=== PATIENT | female | born 1945 | race Caucasian/White ===

== ENCOUNTER 2017-12-30 14:45 | Outpatient (CLI) | payer OTHER ==
--- NOTE | 2017-12-30 17:46 | XRAY Report ---
Reason: OSTEOARTHRITIS OF MINGO HANDS, EXTENSOR NODULE Procedure Date: 12/30/2017 Accession Number: [id number] / [id number] Procedure: XR - Finger(s) LT CPT Code: FULL RESULT: EXAM: LEFT FOURTH DIGIT RADIOGRAPHY BILATERAL HAND RADIOGRAPHY EXAM DATE: 12/30/2017 04:25 PM. CLINICAL HISTORY: OSTEOARTHRITIS OF MINGO HANDS, EXTENSOR NODULE. COMPARISON: None. TECHNIQUE: 3 views of the left fourth digit. 2 views of each bilateral hand. FINDINGS: Bones: No fractures or bone lesions. Bones appear osteopenic. Joints: In the left hand, there is moderate first CMC and triscaphe joint DJD along with moderate-severe DJD at the second, third, and fifth DIP joints, mild to moderate at the fourth DIP joint. In the right hand there is moderate first CMC and triscaphe joint DJD along with moderate-severe DJD at the second, third, and fifth DIP joints, moderate at the fourth DIP joint. Soft Tissues: Extensor nodule is not well-visualized. IMPRESSION: 1. No acute osseous abnormality. 2. Bilateral osteoarthritis. RADIA
--- NOTE | 2017-12-30 17:46 | XRAY Report ---
Reason: OSTEOARTHRITIS OF MINGO HANDS, EXTENSOR NODULE Procedure Date: 12/30/2017 Accession Number: [id number] / [id number] Procedure: XR - Hand 2 View BILAT CPT Code: FULL RESULT: EXAM: LEFT FOURTH DIGIT RADIOGRAPHY BILATERAL HAND RADIOGRAPHY EXAM DATE: 12/30/2017 04:25 PM. CLINICAL HISTORY: OSTEOARTHRITIS OF MINGO HANDS, EXTENSOR NODULE. COMPARISON: None. TECHNIQUE: 3 views of the left fourth digit. 2 views of each bilateral hand. FINDINGS: Bones: No fractures or bone lesions. Bones appear osteopenic. Joints: In the left hand, there is moderate first CMC and triscaphe joint DJD along with moderate-severe DJD at the second, third, and fifth DIP joints, mild to moderate at the fourth DIP joint. In the right hand there is moderate first CMC and triscaphe joint DJD along with moderate-severe DJD at the second, third, and fifth DIP joints, moderate at the fourth DIP joint. Soft Tissues: Extensor nodule is not well-visualized. IMPRESSION: 1. No acute osseous abnormality. 2. Bilateral osteoarthritis. RADIA
== END 2017-12-30 14:46 | disposition home or self-care (01) ==
LOC: DI 14:45
PROVIDERS: ATTEND Internal Medicine
DX: M19.042 Primary osteoarthritis, left hand (principal); M19.041 Primary osteoarthritis, right hand
CPT/HCPCS: 73140

== ENCOUNTER 2021-06-08 11:18 | Inpatient (IN) | payer MEDICARE, OTHER ==
[2021-06-08] MEDS ORDERED: SODIUM CHLORIDE 0.9% 1,000 ML IV STA (12:09)
--- NOTE | 2021-06-08 12:13 | XRAY Report ---
PROCEDURE: Chest 1 View X-Ray INDICATIONS: chest pain TECHNIQUE: One view of the chest was acquired. COMPARISON: None. FINDINGS: Surgical changes and devices: None. Lungs and pleura: Trace left pleural effusion is likely present with blunting of left costophrenic an gle. There is left basilar atelectasis. No focal infiltrate or gross pneumothorax. Mediastinum: Mediastinal contours appear normal. Heart size is normal. Bones and chest wall: No suspicious bony lesions. Overlying soft tissues appear unremarkable. IMPRESSION: Trace left pleural effusion and left basilar atelectasis. No definite focal infiltrate. No gross pneu mothorax. Reviewed by: Randy Gonzalez MD on 06/08/2021 12:12 PM PST Approved by: Randy Gonzalez MD on 06/08/2021 12:12 PM PST Station ID: [id number]
[2021-06-08 12:31] LABS: BASOPHILS # (AUTO) 0.1 10^3/uL (0.0-0.1); BASOPHILS % (AUTO) 0.8 %; EOSINOPHILS # (AUTO) 0.1 10^3/uL (0.0-0.7); EOSINOPHILS % (AUTO) 0.7 %; HCT - HEMATOCRIT 40.6 % (37.0-47.0); HGB - HEMOGLOBIN 13.7 g/dL (12.0-16.0); LYMPHOCYTES # (AUTO) 1.1 10^3/uL (1.5-3.5); LYMPHOCYTES % (AUTO) 12.5 %; MEAN CORPUSCULAR HEMOGLOBIN 29.7 pg (27.0-31.0); MEAN CORPUSCULAR HGB CONC 33.7 g/dL (32.0-36.0); MEAN CORPUSCULAR VOLUME 87.9 fL (81.0-99.0); MEAN PLATELET VOLUME 9.3 fL (7.9-10.8); MONOCYTES # (AUTO) 0.8 10^3/uL (0.0-1.0); MONOCYTES % (AUTO) 8.4 %; NEUTROPHILS % (AUTO) 77.4 %; PLT - PLATELET COUNT 229 10^3/uL (130-450); RED BLOOD COUNT 4.62 10^6/uL (4.20-5.40); RED CELL DISTRIBUTION WIDTH 13.4 % (12.0-15.0)
[2021-06-08 12:43] LABS: ALBUMIN 3.8 g/dL (3.2-5.5); ALBUMIN/GLOBULIN RATIO 1.1 (1.0-2.2); BILIRUBIN,TOTAL 0.6 mg/dL (0.2-1.0); CALCIUM 9.4 mg/dL (8.5-10.3); CREATININE 0.7 mg/dL (0.4-1.0); POTASSIUM 3.2 mmol/L (3.5-5.0); TOTAL PROTEIN 7.3 g/dL (6.7-8.2)
[2021-06-08 13:21] LABS: B. PARAPERTUSSIS- RESP PCR PAN NOT DETECTED; B. PERTUSSIS- RESP PCR PANEL NOT DETECTED; C. PNEUMONIAE- RESP PCR PANEL NOT DETECTED; CORONAVIRUS 229E-RESP PCR NOT DETECTED; CORONAVIRUS HKU1-RESP PCR NOT DETECTED; CORONAVIRUS NL63-RESP PCR NOT DETECTED; CORONAVIRUS OC43-RESP PCR NOT DETECTED; HUMAN METAPNEUMOVIRUS NOT DETECTED; INFLUENZA A- RESP PCR PANEL NOT DETECTED; INFLUENZA B - RESP PCR PANEL NOT DETECTED; M. PNEUMONIAE- RESP PCR PANEL NOT DETECTED; PARAINFLUENZA VIRUS 1 NOT DETECTED; PARAINFLUENZA VIRUS 2 NOT DETECTED; PARAINFLUENZA VIRUS 3 NOT DETECTED; PARAINFLUENZA VIRUS 4 NOT DETECTED; RHINOVIRUS/ENTEROVIRUS NOT DETECTED; RSV- RESP PCR PANEL NOT DETECTED; SARS-CoV-2 -RESP PCR PANEL NOT DETECTED
[2021-06-08] MEDS ORDERED: LEVALBUTEROL 1.25 MG/3 ML NEB INH STA (14:12)
[2021-06-08] MEDS ORDERED: IOVERSOL 320 100 ML VIAL IVP ONE (14:25)
--- NOTE | 2021-06-08 18:40 | ED Physician Documentation ---
PD HPI DYSPNEA - Stated complaint Stated Complaint: SOA - Chief complaint Chief Complaint: Resp - History obtained from History obtained from: Patient - Additional information Additional information: Pt comes to the ED with CC of dyspnea. She states it's been getting worse for the past couple of weeks, but has been present for several weeks. Pt states she has had a mild cough and thinks also, a low-grade fever. Pt denies any cardiac hx. No h/o DVT/PE. She has not had recent surgery or travels. PT states she had asthma as a kid, but has not really had issues with this much as an adult. She has used an albuterol inhaler on occasion, but does not like the way this makes her feel, so never refilled it. No edema of the legs. Pt has had cramps in her legs, but no specific, unilateral pain. Pt is not a smoker, and never has been. No other complaints at this time. No sick contacts. She is vaccinated for covid. Review of Systems Ten Systems: 10 systems reviewed and negative Constitutional: reports: Fever Eyes: reports: Reviewed and negative Ears: reports: Reviewed and negative Nose: reports: Reviewed and negative Throat: reports: Reviewed and negative Cardiac: reports: Reviewed and negative. 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 : None HEENT: None Psych: None Musculoskeletal: Osteoarthritis Derm: None - Past Surgical History Past Surgical History: Yes General: Appendectomy HEENT: Tonsil/Adenoidectomy - Present Medications Home Medications: Ambulatory Orders Medication Instructions Recorded Confirmed Lisinopril/Hydrochlorothiazide 1 tab ORAL DAILY 06/08/21 06/08/21 [Zestoretic 20-25 mg Tablet] - Allergies Allergies/Adverse Reactions: Allergies Allergy/AdvReac Type Severity Reaction Status Date / Time latex Allergy Hives Verified 06/08/21 11:23 Penicillins Allergy Hives Verified 06/08/21 11:23 - Social History Does the pt smoke?: No Smoking Status: Never smoker Does the pt drink ETOH?: Yes ETOH Use: Wine Does the pt have substance abuse?: No - Immunizations Immunizations are current?: Yes PD ED PE NORMAL - Vitals Vital signs reviewed: Yes - General General: Alert and oriented X 3, Well developed/nourished, Other (PT is in no distress, but appears slightly dyspneic.) - HEENT HEENT: Atraumatic, PERRL, EOMI, Moist mucous membranes - Neck Neck: Supple, no meningeal sign - Cardiac Cardiac: RRR, No murmur, Strong equal pulses - Respiratory Respiratory: No respiratory distress, Clear bilaterally - Abdomen Abdomen: Soft, Non tender, Non distended - Derm Derm: Normal color, Warm and dry, No rash - Extremities Extremities: No deformity, No edema, No calf tenderness / cord - Neuro Neuro: Alert and oriented X 3, Other (grossly intact) - Psych Psych: Normal mood, Normal affect Results - Vitals Vitals: Vital Signs - 24 hr 06/08/21 06/08/21 06/08/21 11:23 12:06 14:02 Temperature 37.1 C Heart Rate 102 H 93 98 Respiratory 20 25 H 18 Rate Blood Pressure 171/88 H 150/87 H 185/105 H O2 Saturation 98 91 L 96 06/08/21 06/08/21 06/08/21 14:15 15:07 15:57 Temperature 37 C Heart Rate 86 86 83 Respiratory 23 18 20 Rate Blood Pressure 158/103 H O2 Saturation 100 06/08/21 06/08/21 06/08/21 19:01 19:17 19:19 Temperature 37.6 C Heart Rate 92 100 Respiratory 20 21 Rate Blood Pressure 131/89 H 154/117 H O2 Saturation 92 86 L 94 Oxygen O2 Source Nasal cannula Oxygen Flow Rate 2 - EKG (time done) 1148 Rate: Rate (enter#) (100) Rhythm: Sinus tachycardia [place]: Normal Intervals: Normal CA QRS: Normal Ischemia: Normal ST segments, Non specific changes Compare to prior EKG: Old EKG unavailable - Labs Labs: Laboratory Tests 06/08/21 06/08/21 06/08/21 12:25 12:25 12:25 WBC 9.0 RBC 4.62 Hgb 13.7 Hct 40.6 MCV 87.9 MCH 29.7 MCHC 33.7 RDW 13.4 Plt Count 229 MPV 9.3 Neut # (Auto) 7.0 H Lymph # (Auto) 1.1 L Sequoyah # (Auto) 0.8 Eos # (Auto) 0.1 Baso # (Auto) 0.1 Absolute Nucleated RBC 0.00 Nucleated RBC % 0.0 Sodium 136 Potassium 3.2 L Chloride 101 Carbon Dioxide 24 Anion Gap 11.0 BUN 16 Creatinine 0.7 Estimated GFR (MDRD) 82 L Glucose 128 H Calcium 9.4 Total Bilirubin 0.6 AST 17 ALT 12 Alkaline Phosphatase 62 B-Natriuretic Peptide Total Protein 7.3 Albumin 3.8 Globulin 3.5 Albumin/Globulin Ratio 1.1 Lipase 28 Nasal Adenovirus (PCR) NOT DETECTED Nasal B. parapertussis DNA (PCR) NOT DETECTED Nasal Coronavir 229E PCR NOT DETECTED Nasal Coronavir HKU1 PCR NOT DETECTED Nasal Coronavir NL63 PCR NOT DETECTED Nasal Coronavir OC43 PCR NOT DETECTED Nasal Enterovir/Rhinovir PCR NOT DETECTED Nasal Influenza B PCR NOT DETECTED Nasal Influenza A PCR NOT DETECTED Nasal Parainfluen 1 PCR NOT DETECTED Nasal Parainfluen 2 PCR NOT DETECTED Nasal Parainfluen 3 PCR NOT DETECTED Nasal Parainfluen 4 PCR NOT DETECTED Nasal RSV (PCR) NOT DETECTED Nasal B.pertussis DNA PCR NOT DETECTED Nasal C.pneumoniae (PCR) NOT DETECTED Yasmani Human Metapneumo PCR NOT DETECTED Nasal M.pneumoniae (PCR) NOT DETECTED Nasal SARS-CoV-2 (PCR) NOT DETECTED 06/08/21 12:25 WBC RBC Hgb Hct MCV MCH MCHC RDW Plt Count MPV Neut # (Auto) Lymph # (Auto) Sequoyah # (Auto) Eos # (Auto) Baso # (Auto) Absolute Nucleated RBC Nucleated RBC % Sodium Potassium Chloride Carbon Dioxide Anion Gap BUN Creatinine Estimated GFR (MDRD) Glucose Calcium Total Bilirubin AST ALT Alkaline Phosphatase B-Natriuretic Peptide 209 H Total Protein Albumin Globulin Albumin/Globulin Ratio Lipase Nasal Adenovirus (PCR) Nasal B. parapertussis DNA (PCR) Nasal Coronavir 229E PCR Nasal Coronavir HKU1 PCR Nasal Coronavir NL63 PCR Nasal Coronavir OC43 PCR Nasal Enterovir/Rhinovir PCR Nasal Influenza B PCR Nasal Influenza A PCR Nasal Parainfluen 1 PCR Nasal Parainfluen 2 PCR Nasal Parainfluen 3 PCR Nasal Parainfluen 4 PCR Nasal RSV (PCR) Nasal B.pertussis DNA PCR Nasal C.pneumoniae (PCR) Yasmani Human Metapneumo PCR Nasal M.pneumoniae (PCR) Nasal SARS-CoV-2 (PCR) - Rads (name of study) CXR Radiology: Final report received, EMP read indepedently, See rad report (nad) CTA chest Radiology: Final report received, EMP read indepedently, See rad report (BL PEs in distal pulmonary arteries and distally. Concern for infarction) PD MEDICAL DECISION MAKING - ED course Complexity details: reviewed results, re-evaluated patient, considered differential, d/w patient ED course: The patient was visibly dyspneic, though mildly so, lying in the bed. Additionally, her O2 sat was in the low 90's with a good pleth, and I felt she should be worked up for this. She was placed on supplemental O2, with good response. CXR was unremarkable, and labs showed only a mild elevation of BNP at 200. The pt was still feeling short of breath, especially with movement, and although she had no identifiable risk factors for DVT/PE, and had not had sx of DVT, I felt she should be worked up with CTA of the chest. The pt was sent over, but as her CT was being started, the machine broke down, and the study could not be completed. I felt the level of concern warranted transfer to have the CTA done, and discussed this with the pt. She initially did not want incur extra expense to do this, but after our discussion, she agreed to the transfer. We arranged with [facility] to have pt get her CTA there, then return here. Pt was sent to [place], and before her return, I received a call from the radiologist, reporting that the pt had bilateral, proximal pulmonary emboli, with findings of pulmonary infarction, but not of R heart failure. At this point, change of shift had already occurred, and the pt was signed out to my oncoming colleague, with plan for re-evaluation on pt's return, and determination of final disposition. Departure - Departure Disposition: 66 [facility] DC/Xfer Clinical Impression: Pulmonary embolism and infarction, Hypoxia Condition: Stable Discharge Date/Time: 06/08/21 22:07
[2021-06-08] MEDS ORDERED: APIXABAN 5 MG TABLET PO STA ×2 (18:41→19:48)
--- NOTE | 2021-06-08 19:35 | ED Physician Documentation ---
ED Addendum - Addendum Addendum: 06/08/21 19:34 Patient was signed out to me by Dr. López. 75-year-old female found to have bilateral pulmonary emboli on CT angio of the chest. We attempted to ambulate the patient in the emergency department and she immediately desaturated down to the mid to low 80s. We will start the patient on anticoagulants and admit for further care. Discussed the case with Dr. Olson, hospitalist to accepts This document was made in part using voice recognition software. While efforts a re made to proofread this document, sound alike and grammatical errors may occur Departure - Departure Disposition: 66 [facility] DC/Xfer Clinical Impression: Pulmonary embolism and infarction, Hypoxia Condition: Stable
[2021-06-08] MEDS ORDERED: SODIUM CHLORIDE FLUSH 0.9% 10 ML SYRINGE IVP PRN (19:59)
[2021-06-08] MEDS ORDERED: ONDANSETRON ODT 4 MG TABLET TL PRN (19:59)
--- NOTE | 2021-06-08 20:05 | HISTORY & PHYSICAL EXAMINATION ---
Chief Complaint - Chief Complaint Chief Complaint: Shortness of breath History of Present Illness - Admitted From Admitted From:: Home - History Obtained From Records Reviewed: Yes History obtained from: Patient, ER Physician, EMR - History of Present Illness HPI Comment/Other: This is a 75-year-old female with a past medical history significant for hypertension who presents today complaining of shortness of breath over the past 3 to 4 weeks. She states her her symptoms began about a month ago and have progressed over the past 10 days. She is usually quite active and able to exercise on a regular basis but lately she has been short of breath with minimal activity such as making her bed in the morning. She reports occasional chest tightness that is worse with her nonproductive cough. She has occasional leg swelling which is chronic for her but this is not worse lately. She does feel dizzy and lightheaded with her dyspnea but she denies any syncope. She reports no fevers but does have occasional chills. She denies a personal history of DVT or thrombus. She states her father had a history of thrombosis but he was solid waste truck driver. She reports no recent surgical intervention or trauma. She has not been on a flight recently. She did take a car ride down to [place] to visit her sister about 2 to 3 months ago. This is about [address] but she does take breaks in between. She underwent a CT angiogram which showed bilateral pulmonary embolism with likely infarction. Initial plan was to send her home and so she was given Eliquis in the emergency department but it was noted that she was hypoxic with activity down to the mid 80s and therefore medicine was consulted for admission. I discussed goals of care with her and she would like to be a DNR. 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 He also had coronary artery disease and underwent CABG. Living arrangement: At home Living Situation: With spouse/s.o. Social History Notes: She lives at home with her significant other. She is a non-smoker. She will occasionally have a glass of wine. Meds/Allgy - Home Medications Home Medications: Ambulatory Orders Medication Instructions Recorded Confirmed Lisinopril/Hydrochlorothiazide 1 tab ORAL DAILY 06/08/21 06/08/21 [Zestoretic 20-25 mg Tablet] - Allergies Allergies/Adverse Reactions: Allergies Allergy/AdvReac Type Severity Reaction Status Date / Time latex Allergy Hives Verified 06/08/21 11:23 Penicillins Allergy Hives Verified 06/08/21 11:23 Review of Systems - Constitutional Constitutional: reports: Chills. denies: Fatigue, Fever - Ears, Nose & Throat Ears, Nose & Throat: denies: Nasal discharge, Nasal congestion, Sore throat - Cardiovascular Cariovascular: reports: Chest pain, Lightheadedness, Exertional dyspnea, Decr. exercise tolerance. denies: Edema, Syncope - Respiratory Respiratory: reports: Cough, SOB with exertion, Pleuritic pain. denies: Sputum production, SOB at rest - Gastrointestinal Gastrointestinal: denies: Abdominal pain, Nausea, Vomiting - Genitourinary Genitourinary: denies: Dysuria, Frequency, Urgency, Hematuria - Musculoskeletal Musculoskeletal: denies: Muscle pain, Back pain - Integumentary Integumentary: denies: Rash - Neurological Neurological: reports: Dizziness. denies: General weakness, Focal weakness - Hematologic/Lymphatic Hematologic/Lymphatic: denies: Anemia, Blood clots, Bleeding tendencies - All Other Systems All Other Systems: reports: Reviewed and negative Prior Level of Functionality: She is independent with her ADL's. Exam - Vital Signs Reviewed Vital Signs: Yes Vital Signs: Vital Signs x48h Temp Pulse Resp BP Pulse Ox 06/08/21 19:19 100 21 154/117 H 94 06/08/21 19:17 86 L 06/08/21 19:01 37.6 C 92 20 131/89 H 92 06/08/21 15:57 83 20 06/08/21 15:07 37 C 86 18 158/103 H 100 06/08/21 14:15 86 23 06/08/21 14:02 98 18 185/105 H 96 06/08/21 12:06 93 25 H 150/87 H 91 L - Physical Exam General Appearance: positive: No acute distress, Alert Eyes Bilateral: positive: Normal inspection, Conjunctivae nml ENT: positive: Other (Nasal cannula in place.) Neck: positive: Nml inspection Respiratory: positive: No respiratory distress. negative: Wheezes, Rales Cardiovascular: positive: Regular rate & rhythm, Tachycardia. negative: Irregularly irregular, Systolic murmur Abdomen: positive: Non-tender, No distention. negative: Tenderness Skin: positive: Warm, Dry Extremities: positive: No pedal edema, Calf tenderness (Right sided calf tenderness.) Neurologic/Psychiatric: positive: Motor nml. negative: Disoriented to person, Disoriented to place, Disoriented to time Conclusion/Plan - Problem List (1) Pulmonary embolism and infarction Conclusion/Plan: She presents with dyspnea and found to have bilateral pulmonary embolism on CT angiogram with likely infarction. This may potentially be provoked given the car ride she had about 2 months ago. Although she is not hypoxic at rest, she does desaturate with activity down to the mid 80s. She was initially tachycardic in the 100s but this has improved to the 80s. Her BNP is only mildly elevated at 200. She received Eliquis in the emergency department as the plan was to initially discharge her home given lack of hypoxia and tachycardia. Given she will be admitted now due to the hypoxic activity, we will continue her on anticoagulation with Lovenox 80 mg twice daily. We will check a troponin. I have ordered an echocardiogram for tomorrow morning. We will also order a duplex. She will need hypercoagulable work-up on an outpatient basis given her family history of thrombosis. (2) Hypertension Conclusion/Plan: She is hypertensive with systolics in the 150s. We will resume her home hydrochlorothiazide/lisinopril. (3) Hypokalemia Conclusion/Plan: Her potassium is decreased at 3.2 and this is likely due to the hydrochlorothiazide. We will replace this orally and recheck in the morning. - Lab Results Lab results reviewed: Yes Fish Bones: 06/08/21 12:25 06/08/21 12:25 - Diagnostic Imaging Results Diagnostic Imaging Results: positive: Final report reviewed - EKG Results EKG Interpreted Independently: Yes EKG Findings: EKG shows sinus tachycardia with nonspecific ST segment changes. Core Measures - Anticipated LOS I expect patient to be DC'd or transferred within 96 hours.: Yes - Issues Hospital Issues and Management Plan: 75-year-old female presents with dyspnea found to have bilateral pulmonary embolism and is hypoxic with activity. She will be admitted for anticoagulation and further work-up. - DVT/VTE - Prophylaxis VTE/DVT Device ordered at admit?: No Not Ordered - Medical Reason: Contraindicated VTE/DVT Prophylaxis med ordered at admit?: Yes
[2021-06-08] MEDS ORDERED: POTASSIUM CHLORIDE 20 MEQ TABLET PO STA (20:48)
[2021-06-08 20:59] LABS: INR 1.4 (0.8-1.2); PT - PROTHROMBIN TIME 15.6 secs (9.9-12.6)
--- NOTE | 2021-06-08 21:52 | Ultrasound Report ---
PROCEDURE: Duplex Ext Veins Bilateral INDICATIONS: Right leg edema TECHNIQUE: Real-time imaging, as well as color and pulse Doppler interrogation, were performed of the deep veins of both legs from the inguinal ligament to the popliteal fossa. COMPARISON: None FINDINGS: The mid to distal SFV demonstrate thrombus and are noncompressible. The right common femora l vein and proximal superficial femoral vein demonstrate normal compressibility and flow. The left lower extremity demonstrates normal compressibility and flow with no evidence of deep venous thrombosis. IMPRESSION: 1. Deep venous thrombosis in the right leg. 2. No DVT in the left leg. Preliminary report was given to Dr. Olson by the earth moving technician. Reviewed by: Mynor Estevez on 06/08/2021 9:50 PM PST Approved by: Mynor Estevez on 06/08/2021 9:50 PM PST Station ID: [id number]
[2021-06-09] MEDS: SODIUM CHLORIDE FLUSH 0.9% 10 ML SYRINGE IVP SCH ×3 (00:34→20:46)
[2021-06-09 06:07] LABS: BASOPHILS # (AUTO) 0.1 10^3/uL (0.0-0.1); BASOPHILS % (AUTO) 0.7 %; EOSINOPHILS # (AUTO) 0.2 10^3/uL (0.0-0.7); EOSINOPHILS % (AUTO) 2.3 %; HCT - HEMATOCRIT 37.8 % (37.0-47.0); HGB - HEMOGLOBIN 12.7 g/dL (12.0-16.0); LYMPHOCYTES # (AUTO) 1.6 10^3/uL (1.5-3.5); LYMPHOCYTES % (AUTO) 21.8 %; MEAN CORPUSCULAR HEMOGLOBIN 29.7 pg (27.0-31.0); MEAN CORPUSCULAR HGB CONC 33.6 g/dL (32.0-36.0); MEAN CORPUSCULAR VOLUME 88.3 fL (81.0-99.0); MEAN PLATELET VOLUME 9.5 fL (7.9-10.8); MONOCYTES # (AUTO) 0.8 10^3/uL (0.0-1.0); MONOCYTES % (AUTO) 11.1 %; NEUTROPHILS # (AUTO) 4.8 10^3/uL (1.5-6.6); NEUTROPHILS % (AUTO) 63.7 %; PLT - PLATELET COUNT 217 10^3/uL (130-450); RED BLOOD COUNT 4.28 10^6/uL (4.20-5.40); RED CELL DISTRIBUTION WIDTH 13.7 % (12.0-15.0); WHITE BLOOD COUNT 7.5 x10^3/uL (4.8-10.8)
[2021-06-09 06:12] LABS: CALCIUM 8.9 mg/dL (8.5-10.3); CREATININE 0.7 mg/dL (0.4-1.0); POTASSIUM 3.5 mmol/L (3.5-5.0)
[2021-06-09] MEDS ORDERED: ENOXAPARIN 40 MG/0.4 ML SYRINGE SUBQ SCH (08:00)
--- NOTE | 2021-06-09 08:31 | PROVIDER PROGRESS NOTE ---
Assessment/Plan - Problem List (1) Pulmonary embolism and infarction Assessment/Plan: This was verified by CT Angio of the chest. Lower extremity Doppler also showed a right leg DVT. Currently on Lovenox 80 mg subcu twice daily. Currently on 6 L of oxygen via nasal cannula with oxygen saturation at 97% Upon discharge will prescribe Eliquis 10 mg twice daily for 7 days then Eliquis 5 mg twice daily for a total of 11 weeks 2D echocardiogram done on 06/09/2021 showed an EF of 65 to 70%. No regional wall motion abnormality. The right ventricle is normal in size and function. The right atrium size is normal. There is no evidence of aortic stenosis, aortic regurgitation, mitral stenosis or mitral regurgitation. Anticipating discharge on 06/10/2021. (3) Hypertension Assessment/Plan: Hydrochlorothiazide 25 mg p.o. daily and lisinopril 20 mg p.o. daily. (4) Hypokalemia Assessment/Plan: Resolved. - Current Meds Current Meds: Current Medications Generic Name Dose Route Start Last Admin Trade Name Freq PRN Reason Stop Dose Admin Sodium Chloride 10 ml 06/09/21 01:00 06/09/21 00:34 Sodium Chloride Flush 0.9% 10 Ml Syringe IVP 10 ml 0100,[id number],1700 [facility] Administration - Lab Result Fish Bone Diagrams: 06/09/21 05:27 06/09/21 05:27 Subjective - Subjective Patient Reports: Other (Patient was resting in bed at time of exam. She complains of chest tightness with exertion/ambulation. She was on 6 L of oxygen via nasal cannula with oxygen saturation at 97%. She denied any other complaints.) Objective Vital Signs: Vital Signs - 24 hr 06/08/21 06/08/21 06/08/21 11:23 12:06 14:02 Temperature 37.1 C Heart Rate 102 H 93 98 Heart Rate [ Brachial] Heart Rate [ Radial] Respiratory 20 25 H 18 Rate Blood Pressure 171/88 H 150/87 H 185/105 H Blood Pressure [Right Brachial artery] O2 Saturation 98 91 L 96 06/08/21 06/08/21 06/08/21 14:15 15:07 15:57 Temperature 37 C Heart Rate 86 86 83 Heart Rate [ Brachial] Heart Rate [ Radial] Respiratory 23 18 20 Rate Blood Pressure 158/103 H Blood Pressure [Right Brachial artery] O2 Saturation 100 06/08/21 06/08/21 06/08/21 19:01 19:17 19:19 Temperature 37.6 C Heart Rate 92 100 Heart Rate [ Brachial] Heart Rate [ Radial] Respiratory 20 21 Rate Blood Pressure 131/89 H 154/117 H Blood Pressure [Right Brachial artery] O2 Saturation 92 86 L 94 06/08/21 06/08/21 06/08/21 20:23 21:00 22:00 Temperature 37.6 C 37 C 37.2 C Heart Rate 84 84 Heart Rate [ Brachial] Heart Rate [ 104 H Radial] Respiratory 20 18 20 Rate Blood Pressure 154/92 H 150/90 H Blood Pressure 188/95 H [Right Brachial artery] O2 Saturation 97 96 98 06/09/21 06/09/21 06/09/21 00:10 04:59 07:50 Temperature 36.5 C 36.6 C 37.1 C Heart Rate Heart Rate [ 87 Brachial] Heart Rate [ 100 100 Radial] Respiratory 20 22 20 Rate Blood Pressure Blood Pressure 182/101 H 167/87 H 145/90 H [Right Brachial artery] O2 Saturation 94 93 97 Oxygen O2 Source Nasal cannula Oxygen Flow Rate 2 I&O (Last 24 Hrs): Intake and Output Totals x24h 06/07/21 06/08/21 06/09/21 23:59 23:59 23:59 Intake Total 1140 970 Balance 1140 970 General: Alert, Oriented x3, Mild distress HEENT: PERRLA, EOMI Neck: Supple, No JVD Neuro: Alert, Non Focal, Oriented Times 3 Cardiovascular: Regular rate, Normal S1, Normal S2, No murmurs Respiratory: Chest non-tender, No respiratory distress, Breath sounds nml Abdomen: Normal bowel sounds, Soft, No tenderness Extremities: No clubbing, No cyanosis, No edema, Normal pulses Skin: No rashes, No breakdown, No significant lesion - Results Results: Laboratory Results WBC 7.5 x10^3/uL (4.8-10.8) 06/09/21 05:27 RBC 4.28 10^6/uL (4.20-5.40) 06/09/21 05:27 Hgb 12.7 g/dL (12.0-16.0) 06/09/21 05:27 Hct 37.8 % (37.0-47.0) 06/09/21 05:27 MCV 88.3 fL (81.0-99.0) 06/09/21 05:27 MCH 29.7 pg (27.0-31.0) 06/09/21 05:27 MCHC 33.6 g/dL (32.0-36.0) 06/09/21 05:27 RDW 13.7 % (12.0-15.0) 06/09/21 05:27 Plt Count 217 10^3/uL (130-450) 06/09/21 05:27 MPV 9.5 fL (7.9-10.8) 06/09/21 05:27 Neut # (Auto) 4.8 10^3/uL (1.5-6.6) 06/09/21 05:27 Lymph # (Auto) 1.6 10^3/uL (1.5-3.5) 06/09/21 05:27 [place] # (Auto) 0.8 10^3/uL (0.0-1.0) 06/09/21 05:27 Eos # (Auto) 0.2 10^3/uL (0.0-0.7) 06/09/21 05:27 Baso # (Auto) 0.1 10^3/uL (0.0-0.1) 06/09/21 05:27 Absolute Nucleated RBC 0.00 x10^3/uL 06/09/21 05:27 Nucleated RBC % 0.0 /100WBC 06/09/21 05:27 PT 15.6 secs (9.9-12.6) H 06/08/21 20:18 INR 1.4 (0.8-1.2) H 06/08/21 20:18 Sodium 139 mmol/L (135-145) 06/09/21 05:27 Potassium 3.5 mmol/L (3.5-5.0) 06/09/21 05:27 Chloride 102 mmol/L (101-111) 06/09/21 05:27 Carbon Dioxide 24 mmol/L (21-32) 06/09/21 05:27 Anion Gap 13.0 (6-13) 06/09/21 05:27 BUN 12 mg/dL (6-20) 06/09/21 05:27 Creatinine 0.7 mg/dL (0.4-1.0) 06/09/21 05:27 Estimated GFR (MDRD) 82 (>89) L 06/09/21 05:27 Glucose 106 mg/dL (70-100) H 06/09/21 05:27 Calcium 8.9 mg/dL (8.5-10.3) 06/09/21 05:27 Total Bilirubin 0.6 mg/dL (0.2-1.0) 06/08/21 12:25 AST 17 IU/L (10-42) 06/08/21 12:25 ALT 12 IU/L (10-60) 06/08/21 12:25 Alkaline Phosphatase 62 IU/L (42-121) 06/08/21 12:25 Troponin I High Sens 43.1 ng/L (2.3-14.8) H* 06/09/21 05:27 B-Natriuretic Peptide 209 pg/mL (5-100) H 06/08/21 12:25 Total Protein 7.3 g/dL (6.7-8.2) 06/08/21 12:25 Albumin 3.8 g/dL (3.2-5.5) 06/08/21 12:25 Globulin 3.5 g/dL (2.1-4.2) 06/08/21 12:25 Albumin/Globulin Ratio 1.1 (1.0-2.2) 06/08/21 12:25 Lipase 28 U/L (22-51) 06/08/21 12:25 Nasal Adenovirus (PCR) NOT DETECTED 06/08/21 12:25 Nasal B. parapertussis DNA (PCR) NOT DETECTED 06/08/21 12:25 Nasal Coronavir 229E PCR NOT DETECTED 06/08/21 12:25 Nasal Coronavir HKU1 PCR NOT DETECTED 06/08/21 12:25 Nasal Coronavir NL63 PCR NOT DETECTED 06/08/21 12:25 Nasal Coronavir OC43 PCR NOT DETECTED 06/08/21 12:25 Nasal Enterovir/Rhinovir PCR NOT DETECTED 06/08/21 12:25 Nasal Influenza B PCR NOT DETECTED 06/08/21 12:25 Nasal Influenza A PCR NOT DETECTED 06/08/21 12:25 Nasal Parainfluen 1 PCR NOT DETECTED 06/08/21 12:25 Nasal Parainfluen 2 PCR NOT DETECTED 06/08/21 12:25 Nasal Parainfluen 3 PCR NOT DETECTED 06/08/21 12:25 Nasal Parainfluen 4 PCR NOT DETECTED 06/08/21 12:25 Nasal RSV (PCR) NOT DETECTED 06/08/21 12:25 Nasal B.pertussis DNA PCR NOT DETECTED 06/08/21 12:25 Nasal C.pneumoniae (PCR) NOT DETECTED 06/08/21 12:25 Yasmani Human Metapneumo PCR NOT DETECTED 06/08/21 12:25 Nasal M.pneumoniae (PCR) NOT DETECTED 06/08/21 12:25 Nasal SARS-CoV-2 (PCR) NOT DETECTED 06/08/21 12:25 ABX Reporting Has patient been on IV antibiotics over the past 48 hours?: No
[2021-06-09] MEDS: lisinopriL 20 MG TABLET PO SCH (09:45)
[2021-06-09] MEDS: hydroCHLOROthiazide 25 MG TABLET PO SCH (09:45)
--- NOTE | 2021-06-09 10:45 | PHARMACY PROGRESS NOTE ---
- Best Possible Medication History Admit Date and Time: 06/08/211958 Processed by: Nursing Medication History completed: Yes Patient Interview: Completed As the person ultimately responsible for medication therapy, providers are able to order a medication from an existing home medication list in [facility] via the "Reconcile Routine" prior to Confirmation of that medication by system support analyst. Such practice is discouraged except when the physician, in their clinical judg ment, deems that a medical need exists for a medication without regard to previous use.
[2021-06-09] MEDS: ENOXAPARIN 80 MG/0.8 ML SYRINGE SUBQ SCH (20:22)
[2021-06-09] MEDS: ACETAMINOPHEN 325 MG TABLET PO PRN (20:26)
[2021-06-10] MEDS: SODIUM CHLORIDE FLUSH 0.9% 10 ML SYRINGE IVP SCH ×2 (05:02→08:54)
[2021-06-10 05:25] LABS: BASOPHILS # (AUTO) 0.1 10^3/uL (0.0-0.1); BASOPHILS % (AUTO) 1.2 %; EOSINOPHILS # (AUTO) 0.3 10^3/uL (0.0-0.7); EOSINOPHILS % (AUTO) 4.4 %; HCT - HEMATOCRIT 40.7 % (37.0-47.0); HGB - HEMOGLOBIN 13.6 g/dL (12.0-16.0); LYMPHOCYTES % (AUTO) 29.6 %; MEAN CORPUSCULAR HEMOGLOBIN 29.4 pg (27.0-31.0); MEAN CORPUSCULAR HGB CONC 33.4 g/dL (32.0-36.0); MEAN CORPUSCULAR VOLUME 88.1 fL (81.0-99.0); MEAN PLATELET VOLUME 9.2 fL (7.9-10.8); MONOCYTES # (AUTO) 0.6 10^3/uL (0.0-1.0); MONOCYTES % (AUTO) 9.7 %; NEUTROPHILS # (AUTO) 3.6 10^3/uL (1.5-6.6); NEUTROPHILS % (AUTO) 54.8 %; PLT - PLATELET COUNT 236 10^3/uL (130-450); RED BLOOD COUNT 4.62 10^6/uL (4.20-5.40); RED CELL DISTRIBUTION WIDTH 13.5 % (12.0-15.0); WHITE BLOOD COUNT 6.6 x10^3/uL (4.8-10.8)
[2021-06-10 05:32] LABS: CALCIUM 9.3 mg/dL (8.5-10.3); CREATININE 0.7 mg/dL (0.4-1.0); POTASSIUM 3.4 mmol/L (3.5-5.0)
[2021-06-10] MEDS ORDERED: POTASSIUM CHLORIDE 20 MEQ TABLET PO ONE (07:46)
--- NOTE | 2021-06-10 07:51 | DISCHARGE SUMMARY ---
Discharge Summary Admit Date: 06/08/21 Discharge Date: 06/10/21 Discharging Provider: Zelda Guzmán Primary Care Provider: Blanca Baltazar Code Status: Do Not Attempt Resuscitation Condition at Discharge: Stable Discharge Disposition: 01 Home, Self Care - DIAGNOSES Admission Diagnoses: Pulmonary embolism and infarction Hypertension Hypokalemia Discharge Diagnoses with Status of Each Condition: Pulmonary embolism and infarction: Acute. Stable. Continue Eliquis for a total of 12 weeks. Hypertension: Chronic. Stable. Resume home medication. Hypokalemia: Acute. Resolved - HPI History of Present Illness: Per HPI: This is a 75-year-old female with a past medical history significant for hypertension who presents today complaining of shortness of breath over the past 3 to 4 weeks. She states her her symptoms began about a month ago and have progressed over the past 10 days. She is usually quite active and able to exercise on a regular basis but lately she has been short of breath with minimal activity such as making her bed in the morning. She reports occasional chest t ightness that is worse with her nonproductive cough. She has occasional leg swelling which is chronic for her but this is not worse lately. She does feel dizzy and lightheaded with her dyspnea but she denies any syncope. She reports no fevers but does have occasional chills. She denies a personal history of DVT or thrombus. She states her father had a history of thrombosis but he was logging truck driver. She reports no recent surgical intervention or trauma. She has not been on a flight recently. She did take a car ride down to [place] to visit her sister about 2 to 3 months ago. This is about [address] she does take breaks in between. She underwent a CT angiogram which showed bilateral pulmonary embolism with likely infarction. Initial plan was to send her home and so she was given Eliquis in the emergency department but it was noted that she was hypoxic with activity down to the mid 80s and therefore medicine was consulted for admission. I discussed goals of care with her and she would like to be a DNR. - HOSPITAL COURSE Hospital Course: On supplemental oxygen with ambulation the patient's oxygen saturation dropped to 88% on room air. Her highest oxygen requirement was 6 L at which her oxygen saturation was 97%. Over the course of 48-hour stay her oxygen requirement steadily decreased and by discharge her oxygen saturation was 90 to 92% on room air. She was treated with Lovenox 80 mg subcu twice daily while in the hospital. A 2D echocardiogram was negative for any right heart strain. Lower extremity Dopplers showed a right DVT. She was prescribed Eliquis 10 mg p.o. twice daily for 7 days then Eliquis 5 mg p.o. twice daily after completion of the 7 days Eliquis above. She is expected to be on Eliquis for a total of 12 weeks. Is expected that her primary care physician Blanca Baltazar will continue to manage. The rest of her hospital stay was fairly unremarkable. She was discharged in stable condition. - ALLERGIES Allergies/Adverse Reactions: Allergies Allergy/AdvReac Type Severity Reaction Status Date / Time latex Allergy Hives Verified 06/08/21 11:23 Penicillins Allergy Hives Verified 06/08/21 11:23 - MEDICATIONS Home Medications: Ambulatory Orders Medication Instructions Recorded Confirmed Lisinopril/Hydrochlorothiazide 1 tab ORAL DAILY 06/08/21 06/08/21 [Zestoretic 20-25 mg Tablet] Apixaban [Eliquis] 5 mg PO BID 30 Days #60 tablet 06/09/21 Apixaban [Eliquis] 10 mg PO BID 7 Days #28 tablet 06/09/21 - PHYSICAL EXAM AT DISCHARGE General Appearance: positive: No acute distress, Alert Eyes Bilateral: positive: PERRL, EOMI ENT: positive: No signs of dehydration Neck: positive: No JVD, Trachea midline Respiratory: positive: Chest non-tender, No respiratory distress, Breath sounds nml. negative: Wheezes, Rales, Rhonchi Cardiovascular: positive: Regular rate & rhythm Abdomen: positive: Non-tender, Nml bowel sounds, No distention. negative: Guarding, Rebound Skin: positive: Color nml, No rash, Warm, Dry. negative: Cyanosis Extremities: positive: Non-tender, Full ROM, Nml appearance Neurologic/Psychiatric: positive: Oriented x3, Other (Sad. Tearful) - LABS Result Diagrams: 06/10/21 05:15 06/10/21 05:15 - TIME SPENT Time Spent in Discharge (Minutes): 20
--- NOTE | 2021-06-10 07:52 | Discharge Plan ---
Discharge Plan Problem Reviewed?: Yes Disposition: Home, Self Care Condition: Stable Prescriptions: Apixaban [Eliquis] 10 mg PO BID 7 Days #28 tablet Apixaban [Eliquis] 5 mg PO BID 30 Days #60 tablet Diet: Cardiac Activity Restrictions: Activity as Tolerated Health Concerns: Mated on 06/08/2021 with shortness of breath. Work-up included a CT angio of the chest which showed that you had a pulmonary embolism. Attempt to ambulate you while still in the emergency department resulted in an oxygen saturation of 88% on room air. As a result you were admitted on supplemental oxygen. Your h ighest oxygen requirement was 6 L to maintain your oxygen at 97%. You were monitored over 48 Hour duration during which she oxygen requirement steadily decreased. By the time of discharge you were breathing comfortably on room air with your oxygen saturation greater than 90 to 92%. You had a 2D echocardiogram done which was negative for any heart strain. You were treated with Lovenox subcu twice daily during your hospital stay. At discharge she was prescribed Eliquis 10 mg twice daily for 7 days after which she was then switched to Eliquis 5 mg twice daily. You will maintain this second dose of Eliquis for 11 more weeks. You were prescribed 30 days worth of Eliquis 5 mg twice daily. It is expected that your primary care physician will continue management of Eliquis for the duration of time that you would needed. You were cautioned about being careful while getting around because you may have risk of bruising easily. If you notice any tarry dark stools do not hesitate to bring it to medical attention. You expressed understanding to the plan above and are agreeable. Consequently you are being discharged in stable condition. You are being discharged home. No Smoking: If you smoke, Please STOP! Call for help. Follow-up with: Blanca Silverio MD [Primary Care Provider] -
[2021-06-10] MEDS: ACETAMINOPHEN 325 MG TABLET PO PRN (07:57)
[2021-06-10] MEDS: ENOXAPARIN 80 MG/0.8 ML SYRINGE SUBQ SCH (08:01)
[2021-06-10] MEDS: hydroCHLOROthiazide 25 MG TABLET PO SCH (08:01)
[2021-06-10] MEDS: lisinopriL 20 MG TABLET PO SCH (08:01)
[2021-06-10 12:52] VITALS: BP 149/75
== END 2021-06-10 13:30 | disposition home or self-care (01) | DRG 176 ==
LOC: ED 11:18 → MS2 19:59
PROVIDERS: ADMIT Internal Medicine; ATTEND Internal Medicine
DX: I26.99 Other pulmonary embolism without acute cor pulmonale (principal); I82.411 Acute embolism and thrombosis of right femoral vein; I10 Essential (primary) hypertension; Z20.822 Contact with and (suspected) exposure to COVID-19; E87.6 Hypokalemia; R09.02 Hypoxemia
CPT/HCPCS: 36415; 71045; 80048; 80053; 83690; 83880; 84484; 85025; 85610; 87631; 93005; 93306; 93970; 94640; 99284; A9270; J1650; Q9967; 0202U

== ENCOUNTER 2021-06-08 16:49 | Outpatient (CLI) | payer MEDICARE | END 2021-06-08 16:50 | disposition short-term general hospital (02) | LOC: EMS 16:49 | PROVIDERS: ATTEND Emergency Medicine | DX: R06.09 Other forms of dyspnea (principal) | CPT/HCPCS: A0425; A0428 ==

== ENCOUNTER 2021-06-08 18:04 | Outpatient (CLI) | payer MEDICARE | END 2021-06-08 18:05 | disposition critical access hospital (66) | LOC: EMS 18:04 | PROVIDERS: ATTEND Emergency Medicine | DX: R06.09 Other forms of dyspnea (principal) | CPT/HCPCS: A0425; A0428 ==

== ENCOUNTER 2021-08-27 08:00 | Outpatient (CLI) | payer MEDICARE ==
[2021-08-27 15:26] LABS: CALCIUM 9.6 mg/dL (8.5-10.3); CREATININE 0.7 mg/dL (0.4-1.0); POTASSIUM 3.9 mmol/L (3.5-5.0)
== END 2021-08-27 08:01 | disposition home or self-care (01) ==
LOC: LAB.S 08:00
PROVIDERS: ATTEND Internal Medicine
DX: I10 Essential (primary) hypertension (principal)
CPT/HCPCS: 36415; 80048

== ENCOUNTER 2023-11-10 14:13 | Outpatient (CLI) | payer MEDICARE ==
--- NOTE | 2023-11-10 20:41 | DEXA Report ---
PROCEDURE: Dexa Spine and/or Hip INDICATIONS: BREAST CA TECHNIQUE: Dual energy x-ray absorptiometry (DXA) was performed on a [employer] System. Regions measur ed are the AP Spine, femoral neck, and if needed forearm. COMPARISON: None FINDINGS: Lumbar Spine: Bone Mineral Density: 0.794 g/cm/cm,T score: -3.2. Left Femoral Neck: Bone Mineral Density: 0.581 g/cm/cm, T score: -3.3. Left Hip: Bone Mineral Density: 0.702 g/cm/cm,T score: -2.4. 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 Patients with diagnosis of osteoporosis or osteopenia should have regular bone mineral density assess ment. For those eligible for Medicare, routine testing is allowed once every 2 years. Testing frequ ency can be increased for patients who have rapidly progressing disease or for those who are receivin g medical therapy to restore bone mass. Reviewed by: Jovana Mcfadden MD on 11/10/2023 8:40 PM PDT Approved by: Jovana Mcfadden MD on 11/10/2023 8:40 PM PDT Station ID: [id number]
== END 2023-11-10 14:14 | disposition home or self-care (01) ==
LOC: DI 14:13
PROVIDERS: ATTEND Internal Medicine Hematology & Oncology
DX: C50.911 Malignant neoplasm of unspecified site of right female breast (principal); Z17.0 Estrogen receptor positive status [ER+]; N95.9 Unspecified menopausal and perimenopausal disorder